=== PATIENT | male | born 1995 | race Caucasian/White ===

== ENCOUNTER 2021-05-01 06:15 | Emergency (ER) | payer SELFPAY ==
--- NOTE | 2021-05-01 06:34 | EDM.PDOC ---
ED HPI GENERAL MEDICAL PROBLEM - General Chief Complaint: ENT Problem Stated Complaint: EVAL Time Seen by Provider: 05/01/21 06:17 Source of Information: Reports: Patient History Limitations: Reports: No Limitations - History of Present Illness INITIAL COMMENTS - FREE TEXT/NARRATIVE: Saúl is a 25-year-old male presenting from [facility] by private vehicle for evaluation of dental abscess. The patient was previously seen elsewhere and started on Augmentin but now has worsening pain, swelling in the mouth, and facial swelling. Started on Augmentin by Dr. Spencer at [facility] on 04/29/2021. He has had significant worsening of swelling of the jaw and face now basically around tooth #18, 19 and 20. There is an abscess visualized at the base of tooth #19. There is swelling of the mandible on the left without trismus. Patient denies any fever or chills. - Related Data Allergies Allergy/AdvReac Type Severity Reaction Status Date / Time No Known Allergies Allergy Verified 05/01/21 06:31 Home Meds: Home Meds Clindamycin HCl 300 mg PO TID #30 capsule 05/01/21 [Rx] Ketorolac [Toradol] 10 mg PO Q6H PRN #20 tab 05/01/21 [Rx] ED ROS ENT - Review of Systems Review Of Systems: See Below Constitutional: Reports: No Symptoms HEENT: Reports: Dental Pain, Throat Swelling, Other (Left jaw swelling) Respiratory: Reports: No Symptoms Cardiovascular: Reports: No Symptoms GI/Abdominal: Reports: No Symptoms ED EXAM, ENT - Physical Exam Exam: See Below Exam Limited By: No Limitations General Appearance: Alert, Anxious, Mild Distress Mouth/Throat: Dental Abcess (Sizable abscess at the base of tooth #19. Gingival swelling from tooth 20-18. Swelling of the mandible.). No: Muffled Voice, Peritonsillar Mass, Throat Swelling, Tongue Swelling, Tonsillar Swelling, Trismus, Uvular Deviation Head: Normocephalic, Facial Swelling (Swelling of the left mandible) Neck: Normal Inspection, Full Range of Motion, Lymphadenopathy (L) (Left submental, submandibular, and anterior cervical chain adenopathy) Respiratory/Chest: No Respiratory Distress, Normal Breath Sounds ED I&D PROCEDURES - I&D Site: Dental abscess tooth 19 Local anesthesia - Lidocaine (Xylocaine): 1% with EPI Area Incised With: Needle (18-gauge needle) Drainage: Purulent, Small Amount Probed to Break Up Loculations: No Packed With: None Complications: No Course - Re-Assessments/Exams Free Text/Narrative Re-Assessment/Exam: 05/01/21 06:36 I injected the gingiva around tooth 18, 19 and 20 with lidocaine 1% with epinephrine and incised the abscess using the #18 needle. I applied compression to the abscess expressing as much of the purulent material as possible. My plan is to treat the patient with ceftriaxone 2 g IV and start him on clindamycin 300 mg 3 times daily for 10 days. He will likely need to see a dentist as this tooth likely has a cavity that I do not see due to the swelling. There is no pending airway impingement at this time. Patient should be suitable to go back to the treatment center at [facility] with a prescription for the clindamycin 300 mg 3 times daily and Toradol 10 mg 4 times daily for pain. Departure - Departure Time of Disposition: 07:45 Disposition: Home, Self-Care 01 Clinical Impression: Dental abscess - Discharge Information Instructions: Dental Abscess, [id number] Care Plan Goals: You have a cavity in the tooth that is resulted in a dental abscess of tooth #19. I incised in opened up the abscess so it will probably drain over the next 24 hours reducing some of the pain and pressure in the mouth. We are starting you on a stronger antibiotic by giving you ceftriaxone 2 g IV and then starting you on clindamycin 300 mg 3 times a day for 10 days. You will need to follow-up with a dentist to address what caused the abscess to begin with. There are several here in [place] that typically can get people in quickly. I have also included a prescription for Toradol 10 mg up to 4 times a day for pain. This is not a narcotic pain medicine but rather a very strong anti-inflammatory. Make sure if you take that that you take it with a small amount of food as to not upset your stomach. - Problem List & Annotations (1) Dental abscess SNOMED Code(s): 147898892 Code(s): K04.7 - PERIAPICAL ABSCESS WITHOUT SINUS Status: Acute Priority: Medium Current Visit: Yes - Problem List Review Problem List Initiated/Reviewed/Updated: Yes
[2021-05-01] MEDS ORDERED: cefTRIAXone 2 GM in Sodium Chloride 0.9% 50 ML IV ONE (06:39)
[2021-05-01] MEDS ORDERED: Sodium Chloride 0.9% 10 ML Syringe FLUSH PRN (06:39)
[2021-05-01] MEDS ORDERED: Clindamycin HCl 150 MG Cap PO ONE (07:51)
== END 2021-05-01 07:50 | disposition home or self-care (01) ==
LOC: JP.ED 06:15
DX: K04.7 Periapical abscess without sinus (principal)
CPT/HCPCS: 41800; 96365; 99282; J0696

== ENCOUNTER 2021-05-19 21:46 | Emergency (ER) | payer SELFPAY ==
[2021-05-19] MEDS ORDERED: Ketorolac 30 MG/ML SDV IM ONE (22:10)
--- NOTE | 2021-05-19 22:14 | EDM.PDOC ---
ED HPI GENERAL MEDICAL PROBLEM - General Chief Complaint: ENT Problem Stated Complaint: ABCESS TOOTH Time Seen by Provider: 05/19/21 21:55 Source of Information: Reports: Patient History Limitations: Reports: No Limitations - History of Present Illness INITIAL COMMENTS - FREE TEXT/NARRATIVE: 25-year-old male who was in a local treatment center, has developed a dental abscess in the left mandibular molars. This is a recurring problem for him, he was on a course of antibiotics earlier and it resolved the pain started up again so he was placed back on antibiotics 2 days ago. They have been giving him Tylenol and ibuprofen and it does not seem to be helping, he has responded well to Toradol in the past. No fevers or chills, no significant swelling. Onset: Gradual Duration: Day(s): (Pain for 3 days) Location: Reports: Other (Left mandible) Left Jaw Pain Score (Numeric/FACES): 7 - Related Data Allergies Allergy/AdvReac Type Severity Reaction Status Date / Time No Known Allergies Allergy Verified 05/19/21 22:07 Home Meds: Home Meds Clindamycin HCl 300 mg PO TID #30 capsule 05/01/21 [Rx] Ketorolac [Toradol] 10 mg PO Q6H PRN #20 tab 05/01/21 [Rx] Sertraline [Zoloft] 50 mg PO DAILY 05/19/21 [History] amLODIPine [Norvasc] 5 mg PO DAILY 05/19/21 [History] lisinopriL [Lisinopril] 5 mg PO DAILY 05/19/21 [History] Past Medical History HEENT History: Reports: Impaired Vision Cardiovascular History: Reports: Hypertension Psychiatric History: Reports: ADHD, Addiction, Anxiety - Past Surgical History HEENT Surgical History: Reports: Oral Surgery GI Surgical History: Reports: Hernia, Inguinal Social & Family History - Caffeine Use Caffeine Use: Reports: Coffee, Tea ED ROS ENT - Review of Systems Review Of Systems: See Below Constitutional: Denies: Fever, Chills HEENT: Reports: Dental Pain Respiratory: Denies: Shortness of Breath Cardiovascular: Denies: Chest Pain GI/Abdominal: Denies: Nausea, Vomiting Skin: Denies: Erythema Neurological: Denies: Headache ED EXAM, ENT - Physical Exam Exam: See Below Exam Limited By: No Limitations General Appearance: Alert, No Apparent Distress (Looks uncomfortable but not distressed) Mouth/Throat: Other (There is a small amount of gingival erythema and swelling along the molars of the left mandible, no fluctuance or significant buccal swelling or erythema) Respiratory/Chest: No Respiratory Distress, Lungs Clear Neurological: Alert, Oriented Psychiatric: Normal Affect, Normal Mood Skin: Warm, Dry Course - Vital Signs Last Recorded V/S: Last Vital Signs Temp 98.1 F 05/19/21 22:04 Pulse 107 H 05/19/21 22:04 Resp 16 05/19/21 22:04 BP 137/84 05/19/21 22:04 Pulse Ox 98 05/19/21 22:04 - Orders/Labs/Meds Meds: Medications Discontinued Medications Generic Name Dose Route Start Last Admin Trade Name Florin PRN Reason Stop Dose Admin Ketorolac Tromethamine 30 mg 05/19/21 22:10 05/19/21 22:17 Ketorolac 30 Mg/Ml Sdv IM 05/19/21 22:11 30 mg ONETIME ONE Administration - Re-Assessments/Exams Free Text/Narrative Re-Assessment/Exam: 05/19/21 22:13 Continue the clindamycin, ketorolac 30 mg was given IM and a prescription for 20 additional doses of oral ketorolac. This can be taken every 6 hours, if he does not have significant improvement in 2 or 3 days he can be rechecked. Continue with Tylenol as well. Return sooner if worsening such as fever, facial swelling or redness or worsening pain. Departure - Departure Time of Disposition: 22:30 Disposition: DC/Tfer to Other 70 Clinical Impression: Dental abscess - Discharge Information Instructions: Dental Abscess, [id number] Referrals: PCP,None [Primary Care Provider] - Forms: ED Department Discharge Care Plan Goals: Continue clindamycin and tylenol, add ketoralac as directed every 6 hours until pain improves. Recheck in 2-3 days if not improving or sooner if worsening such as facial swelling, fever or worsening pain Sepsis Event Note (ED) - Evaluation Sepsis Screening Result: No Definite Risk - Focused Exam Vital Signs: Vital Signs Temp Pulse Resp BP Pulse Ox 05/19/21 22:04 98.1 F 107 H 16 137/84 98
== END 2021-05-19 22:50 | disposition other institution (70) ==
LOC: JP.ED 21:46
DX: K04.7 Periapical abscess without sinus (principal); I10 Essential (primary) hypertension; Z79.899 Other long term (current) drug therapy
CPT/HCPCS: 96372; 99283; J1885

== ENCOUNTER 2021-05-22 20:50 | Emergency (ER) | payer SELFPAY ==
[2021-05-22] MEDS ORDERED: Bupivacaine 0.5%/EPINEPHrine 1:200,000 1.8 ML Cartridge INJECT ONE (22:10)
--- NOTE | 2021-05-22 22:18 | EDM.PDOC ---
ED HPI GENERAL MEDICAL PROBLEM - General Chief Complaint: ENT Problem Stated Complaint: ABCESS TOOTH GETTING WORSE Time Seen by Provider: 05/22/21 21:55 Source of Information: Reports: Patient History Limitations: Reports: No Limitations - History of Present Illness INITIAL COMMENTS - FREE TEXT/NARRATIVE: 25-year-old male here for a local detox, was seen in the emergency room 3 days ago and started on Toradol for pain for developing abscessed tooth, he was already on clindamycin. Onset: Gradual Duration: Day(s): (Worsening pain and facial swelling over the past 4 days) Location: Reports: Face (Left mandible) Associated Symptoms: Reports: Malaise. Denies: Fever/Chills, Headaches, Loss of Appetite Left Oral/Mouth Pain Score (Numeric/FACES): 7 - Related Data Allergies Allergy/AdvReac Type Severity Reaction Status Date / Time No Known Allergies Allergy Verified 05/22/21 22:07 Home Meds: Home Meds Clindamycin HCl 300 mg PO TID #30 capsule 05/01/21 [Rx] Ketorolac [Toradol] 10 mg PO Q6H PRN #20 tab 05/01/21 [Rx] Sertraline [Zoloft] 50 mg PO DAILY 05/19/21 [History] amLODIPine [Norvasc] 5 mg PO DAILY 05/19/21 [History] lisinopriL [Lisinopril] 5 mg PO DAILY 05/19/21 [History] Past Medical History HEENT History: Reports: Impaired Vision Cardiovascular History: Reports: Hypertension Psychiatric History: Reports: ADHD, Addiction, Anxiety Immunologic History: Reports: AIDS - Past Surgical History HEENT Surgical History: Reports: Oral Surgery GI Surgical History: Reports: Hernia, Inguinal Social & Family History - Family History Family Medical History: No Pertinent Family History - Tobacco Use Tobacco Use Status *Q: Current Every Day Tobacco User Years of Tobacco use: 7 Packs/Tins Daily: 1 - Caffeine Use Caffeine Use: Reports: Soda - Recreational Drug Use Recreational Drug Use: Yes 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 Denies: Fever, Chills HEENT: Reports: Dental Pain Respiratory: Reports: No Symptoms GI/Abdominal: Reports: No Symptoms Skin: Denies: Erythema Neurological: Reports: No Symptoms ED EXAM, ENT - Physical Exam Exam: See Below Exam Limited By: No Limitations General Appearance: Alert, No Apparent Distress (Looks uncomfortable but not distressed) Eye Exam: Bilateral Eye: Normal Inspection Mouth/Throat: Other (Patient does now have fullness and tenderness over the left mandible, the oral exam reveals a yellowish swollen edematous area just lateral to the molars in the left mandible.) Head: Atraumatic Neck: Other (There is no palpable fullness or pain that extends into the neck or submandibular area). No: Lymphadenopathy (R), Lymphadenopathy (L) Respiratory/Chest: Lungs Clear Cardiovascular: Regular Rate, Rhythm. No: Tachycardia Course - Vital Signs Last Recorded V/S: Last Vital Signs Temp 98.4 F 05/22/21 22:06 Pulse 78 05/22/21 22:06 Resp 16 05/22/21 22:06 BP 149/87 H 05/22/21 22:06 Pulse Ox 98 05/22/21 22:06 - Orders/Labs/Meds Meds: Medications Discontinued Medications Generic Name Dose Route Start Last Admin Trade Name Florin PRN Reason Stop Dose Admin Bupivacaine HCl/Epinephrine Bitart 1.8 ml 05/22/21 22:10 05/22/21 22:20 Bupivacaine 0.5%/Epinephrine 1:200,000 1.8 Ml Cartridge INJECT 05/22/21 22:11 1.8 ml ONETIME ONE Administration - Re-Assessments/Exams Free Text/Narrative Re-Assessment/Exam: 05/23/21 02:26 Inferior alveolar nerve block was done with bupivacaine and epinephrine. Following anesthesia a #11 scalpel blade was used to incise into the abscessed area expelling a significant amount of purulent material. The patient rinsed his mouth out several times and continued to have less swelling while gently massaging the abscess. He will finish the antibiotic which has likely contained to the abscess but hopefully now it can heal since it has been drained. He will return in the next few days if worsening. Departure - Departure Time of Disposition: 22:47 Disposition: Home, Self-Care 01 Clinical Impression: Dental abscess - Discharge Information Instructions: Dental Abscess Referrals: PCP,None [Primary Care Provider] - Forms: ED Department Discharge Care Plan Goals: Rinse mouth with warm water several times daily, warm compresses to the left jaw with massaging and continue antibiotic as prescribed. Continue with the regular dose of Tylenol and ibuprofen and return if worsening over the next 48 hours despite treatment. Sepsis Event Note (ED) - Evaluation Sepsis Screening Result: No Definite Risk - Focused Exam Vital Signs: Vital Signs Temp Pulse Resp BP Pulse Ox 05/22/21 22:06 98.4 F 78 16 149/87 H 98 05/22/21 21:35 98.4 F 78 16 149/87 H 98
== END 2021-05-22 22:53 | disposition home or self-care (01) ==
LOC: JP.ED 20:50
DX: K04.7 Periapical abscess without sinus (principal); I10 Essential (primary) hypertension; Z79.899 Other long term (current) drug therapy; Z72.0 Tobacco use
CPT/HCPCS: 41800; 99282; J3490